=== PATIENT | female | born 1940 | race Caucasian/White ===

== ENCOUNTER 2019-07-03 13:13 | Inpatient (IN) | payer MEDICARE, OTHER ==
[~2019-07-03] VITALS: Ht 154.9 cm; Wt 45.8 kg
[2019-07-03] MEDS ORDERED: RISP1TAB7 PO (13:43)
[2019-07-03] MEDS ORDERED: CROM10DR2 OP (13:43)
[2019-07-03] MEDS ORDERED: ALEN70TA3 PO (13:43)
[2019-07-03] MEDS ORDERED: ALBU18HF2 IH (13:43)
[2019-07-03] MEDS ORDERED: ASPI-605 PO (13:43)
[2019-07-03] MEDS ORDERED: ESOM40CA52 PO (13:43)
[2019-07-03] MEDS ORDERED: ACET-2154 PO (13:43)
[2019-07-03 14:11] LABS: BASOPHILS # (AUTO) 0.1 K/uL (0.0-8.0); BASOPHILS % (AUTO) 1.2 % (0.0-2.0); EOSINOPHILS # (AUTO) 0.1 K/uL (0.0-0.7); EOSINOPHILS % (AUTO) 2.7 % (0.0-7.0); HEMATOCRIT 35.8 % (31.2-41.9); HEMOGLOBIN 11.8 g/dL (10.9-14.3); LYMPHOCYTES # (AUTO) 1.5 K/uL (20.0-40.0); LYMPHOCYTES % (AUTO) 28.3 % (20.5-51.5); MEAN CORPUSCULAR HEMOGLOBIN 28.4 uug (24.7-32.8); MEAN CORPUSCULAR HGB CONC 33 g/dL (32.3-35.6); MEAN CORPUSCULAR VOLUME 86.1 fL (75.5-95.3); MONOCYTES # (AUTO) 0.4 K/uL (2.0-10.0); MONOCYTES % (AUTO) 7.6 % (0.0-11.0); NEUTROPHILS # (AUTO) 3.3 K/uL (1.8-8.9); NEUTROPHILS % (AUTO) 60.2 % (38.5-71.5); PLATELET COUNT (AUTO) 319 K/uL (179-408); RED BLOOD CELL COUNT(AUTO) 4.16 MIL/uL (3.63-4.92); WHITE BLOOD COUNT (AUTO) 5.4 K/uL (3.8-11.8)
[2019-07-03] MEDS ORDERED: ALBUTEROL SULFATE 2.5 MG/3 ML NEBU ONE (14:15)
[2019-07-03 14:19] LABS: CARBON DIOXIDE 28 mmol/L (21-32); CHLORIDE 95 mmol/L (98-107); CREATININE 0.6 mg/dL (0.6-1.3); GLUCOSE 114 mg/dL (74-106); POTASSIUM 4.3 mmol/L (3.5-5.1); UREA NITROGEN, BLOOD 17 mg/dL (7-18)
[2019-07-03 14:25] LABS: ACETAMINOPHEN < 2.0 ug/mL (10-30); ALANINE AMINOTRANSFERASE 11 U/L (14-59); ALKALINE PHOSPHATASE 86 U/L (50-136); ASPARTATE AMINOTRANSFERASE 15 U/L (15-37); BILIRUBIN,DIRECT 0.1 mg/dL (0.0-0.2); BILIRUBIN,TOTAL 0.4 mg/dL (0.2-1.0); TOTAL PROTEIN, SERUM 7.3 g/dL (6.4-8.2)
[2019-07-03 14:29] LABS: ETHANOL < 3 MG/DL (0-0)
[2019-07-03 14:32] LABS: THYROID STIMULATING HORMONE 1.453 mIU/mL (0.358-3.740)
--- NOTE | 2019-07-03 15:10 | NUR ---
Pt is medically cleared by Dr Manley.
[2019-07-03 15:39] LABS: *BILIRUBIN,URIN NEGATIVE (NEGATIVE); *BLOOD, URINE 1+ (NEGATIVE); *CLARITY,URINE CLEAR (CLEAR); *COLOR,URINE YELLOW (YELLOW); *KETONES,URINE NEGATIVE (NEGATIVE); *UROBILINOGEN,URINE 0.2 E.U./dl (NORMAL); LEUKOCYTE ESTERASE ,URINE NEGATIVE (NEGATIVE); NITRITE, URINE NEGATIVE (NEGATIVE); UGLUCOSE NEGATIVE (NEGATIVE)
[2019-07-03 15:51] LABS: *AMPHETAMINE, URINE NEGATIVE (NEGATIVE); *BARBITURATE, URINE NEGATIVE (NEGATIVE); *CANNABINOID, URINE NEGATIVE (NEGATIVE); *COCCAINE, URINE NEGATIVE (NEGATIVE); *OPIATE, URINE NEGATIVE (NEGATIVE); *PHENCYCLIDINE SCREEN,URINE NEGATIVE (NEGATIVE)
[2019-07-03 15:52] LABS: SQUAMOUS EPITHELIAL CELL,UR FEW /HPF (NONE SEEN); WBC,URINE 0-3 /HPF (0-3)
[2019-07-03] MEDS ORDERED: MAGNESIUM HYDROXIDE 30 ML LIQUID UDC PO PRN (17:45)
[2019-07-03] MEDS ORDERED: MAG HYDROX/AL HYDROX/SIMETH 30 ML LIQUID UDC PO PRN (17:45)
[2019-07-03] MEDS ORDERED: BLOOD SUGAR DIAGNOSTIC 1 EACH STRIP VI ONE (17:45)
[2019-07-03] MEDS: LORAZEPAM 1 MG TABLET PO PRN ×2 (18:01→20:21)
[2019-07-03] MEDS ORDERED: ALBUTEROL SULFATE 2.5 MG/3 ML NEBU NEB PRN (18:30)
--- NOTE | 2019-07-03 18:35 | NUR ---
ADMITTING NOTES : admitting this 78 year old female patient from ER AOx2-3, patient easily irritably , was on 5150 hold for gravely Disabled, patient reported to be refusing her medication in [facility] , call and spoke with the nurse in [facility], they gave information regarding patient vaccine an advance directive, patient offered prn medication however refused, patient also refused to sign documents, patient refused her accucheck even after explaining the benefits of the procedures, called and spoke with DR. Odell , orders made and carried out, oriented to the unit , vs sign T97.3, R16, BP 150/78 SPO2 at 98%, patient refused her dinner, patient advisement were given, will continue monitor
[2019-07-03 20:00] VITALS: BP 163/67
--- NOTE | 2019-07-03 21:00 | NUR ---
Patient anxious, restless, walking through the hallway.hesitant to take medication. Was able to give the prn medication with repeated explanation.Will continue to monitor.
[2019-07-03] MEDS: HALOPERIDOL 0.5 MG TABLET PO SCH (21:57)
[2019-07-03] MEDS: DIVALPROEX 250 MG TABLET.DR PO SCH (21:57)
[2019-07-04] MEDS: PANTOPRAZOLE SODIUM 40 MG TABLET.DR PO SCH (06:20)
--- NOTE | 2019-07-04 06:33 | NUR ---
PATIENT AWAKE . TOOK SHOWER. COMPLIANT WITH MEDICATIONS. NO BEHAVIORAL ISSUES NOTED. SLEPT FOR 7 HRS
[2019-07-04 07:30] VITALS: BP_SYST 121; BP_SYST 141; BP_DIAS 59; BP_DIAS 71
[2019-07-04 07:41] LABS: BILIRUBIN,TOTAL 0.5 mg/dL (0.2-1.0); CREATININE 0.8 mg/dL (0.6-1.3); POTASSIUM 3.8 mmol/L (3.5-5.1); TOTAL PROTEIN, SERUM 6.5 g/dL (6.4-8.2)
[2019-07-04] MEDS: ASPIRIN EC 81 MG TABLET.DR PO SCH (08:47)
[2019-07-04] MEDS: DIVALPROEX 250 MG TABLET.DR PO SCH ×2 (08:47→20:18)
[2019-07-04] MEDS: HALOPERIDOL 0.5 MG TABLET PO SCH ×3 (08:47→17:00)
--- NOTE | 2019-07-04 08:52 | NUR ---
Received pt. ambulatory, A/Ox3, verbally responsive. No behavioral issue noted. All due medications administered as ordered. Frequent rounding performed. Denies pain or discomfort. Will continue to monitor.
--- NOTE | 2019-07-04 13:39 | NUR ---
Social Work Note: contact worker lithography contacted [facility] ([phone]) and spoke to Evelyn who shared that Scott Cornell ([phone]) is patients fuel truck driver. Evelyn stated that patient does not share any information and that no family members visited patient.
--- NOTE | 2019-07-04 13:55 | NUR ---
Social Work Note/Initial Discharge Plan: Patient currently resides at [facility] [address] [place] [address];([phone]). farm worker contacted Killian admin coordinator from [facility], ([phone]) who expressed that she would need to address with her director of financial planning in regarding whetther or not patient can return. farm worker will work with the patient and the MD regarding appropriate discharge planning. farm worker will form a safe and proper discharge.
--- NOTE | 2019-07-04 13:56 | NUR ---
Social Work Note/Discharge Plan Update: milking worker contacted patient facility [facility] and spoke to Leslie ([phone]) who reported that they will hold patients bed for 7 days.
--- NOTE | 2019-07-04 13:57 | NUR ---
Social Work Note: shell worker contacted Thelma melinda who is covering for [employer] ([phone]) expressed that the only contact information they have is ([phone]) who expressed to contact [facility]. shell worker expressed that she did and that they do not have any information in regard to patients contact information other than Scott.
--- NOTE | 2019-07-04 13:57 | NUR ---
Social Work Note/Family Contact: grout worker contacted patients friend Scott ([phone]) who expressed that he is just patients superintendent drivers and is unable to answer questions.
[2019-07-04 15:48] VITALS: BP 126/76
[2019-07-04 20:15] VITALS: BP 118/61
[2019-07-05] MEDS: PANTOPRAZOLE SODIUM 40 MG TABLET.DR PO SCH (06:59)
[2019-07-05] MEDS: ACETAMINOPHEN 325 MG TABLET PO PRN (07:01)
[2019-07-05 07:30] VITALS: BP 137/49
[2019-07-05] MEDS: DIVALPROEX 250 MG TABLET.DR PO SCH ×2 (08:09→20:03)
[2019-07-05] MEDS: HALOPERIDOL 0.5 MG TABLET PO SCH ×4 (08:09→16:05)
[2019-07-05] MEDS: ASPIRIN EC 81 MG TABLET.DR PO SCH (08:09)
[2019-07-05 16:00] VITALS: BP 175/79
--- NOTE | 2019-07-05 16:35 | NUR ---
GPS: RECEIVED PATIENT AOX2-3, PATIENT COMPLIANT WITH MEDICATION ONLY IF SHE HAD FOOD , PATIENT ARGUMENTATIVE WITH STAFF AND ROOMMATE, SEEN WALKING IN THE HALLWAY , PATIENT SAT ON THE MAX-CHAIR SINCE PATIENT ALWAYS ARGUE WITH ROOMMATE, WILL CONTINUE MONITOR
[2019-07-05] MEDS: LORAZEPAM 1 MG TABLET PO PRN (19:28)
[2019-07-05 20:21] VITALS: BP 126/60
[2019-07-06] MEDS: PANTOPRAZOLE SODIUM 40 MG TABLET.DR PO SCH (06:10)
[2019-07-06] MEDS: DIVALPROEX 250 MG TABLET.DR PO SCH ×2 (08:05→20:35)
[2019-07-06] MEDS: HALOPERIDOL 0.5 MG TABLET PO SCH ×3 (08:05→16:30)
[2019-07-06] MEDS: ASPIRIN EC 81 MG TABLET.DR PO SCH (08:05)
[2019-07-06 08:12] VITALS: BP 118/59
[2019-07-06 16:15] VITALS: BP 112/62
[2019-07-06 20:00] VITALS: BP 135/62
[2019-07-06] MEDS: LORAZEPAM 1 MG TABLET PO PRN (20:35)
[2019-07-06] MEDS: TEMAZEPAM 7.5 MG CAPSULE PO PRN (23:12)
[2019-07-07] MEDS: ALENDRONATE SODIUM 70 MG TABLET PO SCH (06:30)
[2019-07-07] MEDS: PANTOPRAZOLE SODIUM 40 MG TABLET.DR PO SCH (06:59)
[2019-07-07 07:30] VITALS: BP 156/55
[2019-07-07] MEDS: DIVALPROEX 250 MG TABLET.DR PO SCH ×2 (08:21→20:10)
[2019-07-07] MEDS: ASPIRIN EC 81 MG TABLET.DR PO SCH (08:21)
[2019-07-07] MEDS: HALOPERIDOL 0.5 MG TABLET PO SCH ×4 (08:21→21:08)
[2019-07-07] MEDS: LORAZEPAM 1 MG TABLET PO PRN ×2 (08:35→20:04)
[2019-07-07 15:20] VITALS: BP 141/50
--- NOTE | 2019-07-07 16:23 | NUR ---
GPS: PATIENT BEEN ARGUING WITH HER ROOMMATE, REDIRECT PATIENT AND HAD HER SEAT IN MAX CHAIR, PATIENT BEEN SLEEPING ON THE CHAIR, DENIES SI AND HI, WILL CONTINUE MONITOR
--- NOTE | 2019-07-07 18:21 | NUR ---
GPS: PATIENT GOT IRRITATED WITH ROOMMATE, REDIRECT PATIENT WITH QUIET TIME, PATIENT STAYED CALM IN THE MAX CHAIR, WILL CONTINUE MONITOR
[2019-07-07] MEDS ORDERED: CLONAZEPAM 0.5 MG TABLET PO SCH ×2 (21:00)
[2019-07-08 07:30] VITALS: BP 109/49
[2019-07-08] MEDS: HALOPERIDOL 0.5 MG TABLET PO SCH ×6 (09:06→20:27)
[2019-07-08] MEDS: ASPIRIN EC 81 MG TABLET.DR PO SCH (09:06)
[2019-07-08] MEDS: DIVALPROEX 250 MG TABLET.DR PO SCH ×2 (09:06→20:27)
--- NOTE | 2019-07-08 09:34 | NUR ---
Social Work Note/Discharge Plan: compound worker contacted patient facility [facility] and spoke to Leslie ([phone]) who reported that patient is welcomed back.
--- NOTE | 2019-07-08 10:02 | NUR ---
Social Work Note/Discharge Plan Update: child welfare social worker faxed Estefania admin coordinator from [facility] (F:[phone]). Social worked faxed progress notes and psychiatric H & P for coordination of care.
[2019-07-08 15:20] VITALS: BP 90/48
--- NOTE | 2019-07-08 16:03 | NUR ---
Social Work Note/PC Hearing Notification: lubrication worker was unable to contact a family member. Patient does not have any family members.
--- NOTE | 2019-07-08 16:33 | NUR ---
GPS: patient evading her medication , everytime offering medication, patient will say she needs to eat first, patient refusing her medication
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
[2019-07-08] MEDS: LORAZEPAM 1 MG TABLET PO PRN (18:52)
[2019-07-08 19:51] VITALS: BP 139/63
[2019-07-08] MEDS: CLONAZEPAM 0.5 MG TABLET PO SCH (20:27)
--- NOTE | 2019-07-09 05:53 | NUR ---
Patient slept 3 hours. Spent a good portion of the night arguing with roommate about leaving the light on, keeping the door open and other little things. Offered patient am dose of Protonix, but patient refused. Md aware of patients on and off refusal of taking her medications. No acute distress at this time. Patient in bed resting.
[2019-07-09] MEDS: PANTOPRAZOLE SODIUM 40 MG TABLET.DR PO SCH ×2 (05:58→06:00)
[2019-07-09 07:30] VITALS: BP 146/62
[2019-07-09] MEDS: HALOPERIDOL 0.5 MG TABLET PO SCH ×5 (08:19→20:22)
[2019-07-09] MEDS: CLONAZEPAM 0.5 MG TABLET PO SCH ×3 (08:19→20:27)
[2019-07-09] MEDS: DIVALPROEX 250 MG TABLET.DR PO SCH ×4 (08:19→20:22)
[2019-07-09] MEDS: ASPIRIN EC 81 MG TABLET.DR PO SCH ×2 (08:19→09:00)
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
--- NOTE | 2019-07-09 09:37 | NUR ---
patient went to nursing station and being argumentative, patient being racist calling nurses "[place] Islander "
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
--- NOTE | 2019-07-09 12:58 | NUR ---
Social Work Note/Family Contact: Patients family members son Wilder ([phone]) and Svetlana ([phone]) visited social services specialist. Per Wilder, he expressed that when patient was at [facility] his Doctor () was discharging patient and that our PET team went and put him on a hold, which the family is not agreeing with. Per Wilder, he expressed that it was bad timing and that patient was already discharged and that Abebe from our PET team went ahead and put patient on hold. drying can worker educated family about the safety of the patient and the reason for the hold. Family expressed that patient is not suicidal and that it was all a miscommunication with the staff. Per Wilder, he expressed that the psychiatrist Dr. Sawant discontinued patients medication Ativan as it made patient more agitated. Per Wilder, he expressed that Seroquel was helpful and that benadryl helps with sleep. drying can worker educated patients family on what a 5150 hold is. Addendum: 07/09/19 at 1342 by ZELDA GALICIA Amend incorrect patient note.
--- NOTE | 2019-07-09 13:39 | NUR ---
Social Work Note/Coordination of Care: housekeeping laundry worker contacted trev Jurado; [facility] ([phone]), [facility] [place] ([phone]), [facility] ([phone]), [facility] ([phone]) and faxed progress notes and H & P psychiatric notes. Per Adrien, he will contact hospice social worker if patient is accepted.
--- NOTE | 2019-07-09 13:44 | NUR ---
Social Work Note/Discharge Plan Update: industrial workers contacted Estefania admin coordinator from [facility] (F:[phone]) and stated that patient is unable to return yet due to Dr. Oedll stating that patient is not ready. industrial workers asked Estefania if they will honor patients bed after the 7 day bed hold. Per Estefania, she stated that if they have beds available they will take her back.
[2019-07-09 16:00] VITALS: BP 125/49
--- NOTE | 2019-07-09 16:29 | NUR ---
GPS: patient remains in her room , continues to refuse her medication, verbally abusive to staff
--- NOTE | 2019-07-09 17:53 | NUR ---
offered her medication , patient refused
[2019-07-09 20:04] VITALS: BP 153/54
--- NOTE | 2019-07-09 20:50 | NUR ---
Received patient in bed, patient was calm, talkin to her room mate. Med compliant. no behavioral issue at this time.
[2019-07-10] MEDS: ACETAMINOPHEN 325 MG TABLET PO PRN ×3 (05:58→22:43)
[2019-07-10] MEDS: PANTOPRAZOLE SODIUM 40 MG TABLET.DR PO SCH (06:00)
--- NOTE | 2019-07-10 06:00 | NUR ---
Patient complained of pain on her side. Gave tylenol 650mg. Will continue to monitor.
[2019-07-10 07:30] VITALS: BP 116/40
[2019-07-10] MEDS: ASPIRIN EC 81 MG TABLET.DR PO SCH (08:24)
[2019-07-10] MEDS: DIVALPROEX 250 MG TABLET.DR PO SCH ×3 (08:24→20:34)
[2019-07-10] MEDS: HALOPERIDOL 1 MG TABLET PO SCH ×3 (08:25→16:13)
[2019-07-10] MEDS: CLONAZEPAM 0.5 MG TABLET PO SCH ×2 (08:25→20:34)
--- NOTE | 2019-07-10 12:25 | NUR ---
Social Work Note/Coordination of Care: christmas tree farm worker faxed patients progress notes and psychiatric H & P notes to Luisa from [facility] ([phone]). Per Luisa, transferred me to [facility] admin coordinator who expressed that patient is not accepted due to behavioral issues.
--- NOTE | 2019-07-10 12:26 | NUR ---
Social Work Note/Coordination of Care: coating line worker contacted Ashley from [facility] ([phone]) and faxed progress notes and psychiatric H & P notes. Per Ashley, she would want to evaluate patient.
--- NOTE | 2019-07-10 12:44 | NUR ---
Pt received resting in bed, denies SI/HI/AH/VH, able to make needs known and CFS. Pt compliant with medications. Ambulates steadily with walker. Pt is cooperative with care offered. All safety and comfort measures implemented. Will continue to monitor.
--- NOTE | 2019-07-10 13:28 | NUR ---
Social Work Note/Coordination of Care: channel worker contacted Ashley from [facility] ([phone]) and expressed that patient is denied due to behavioral issues.
[2019-07-10 16:08] VITALS: BP 102/42
[2019-07-10 21:23] VITALS: BP 124/57
[2019-07-11] MEDS: TEMAZEPAM 7.5 MG CAPSULE PO PRN (01:42)
[2019-07-11] MEDS: PANTOPRAZOLE SODIUM 40 MG TABLET.DR PO SCH (07:09)
[2019-07-11] MEDS: CLONAZEPAM 0.5 MG TABLET PO SCH ×2 (08:35→19:59)
[2019-07-11] MEDS: HALOPERIDOL 1 MG TABLET PO SCH ×3 (08:35→16:31)
[2019-07-11] MEDS: DIVALPROEX 250 MG TABLET.DR PO SCH ×3 (08:35→19:59)
[2019-07-11] MEDS: ASPIRIN EC 81 MG TABLET.DR PO SCH (08:35)
[2019-07-11 10:21] VITALS: BP 135/66
[2019-07-11 16:00] VITALS: BP 137/53
[2019-07-11 21:16] VITALS: BP 136/67
[2019-07-12] MEDS: TEMAZEPAM 7.5 MG CAPSULE PO PRN (00:39)
--- NOTE | 2019-07-12 05:31 | NUR ---
Patient slept only 2.45 hour. Most of the night was spent arguing with the roommate. Patient very difficult to redirect or keep in reality. Patient has been paranoid and accusatory of roommate and staff. Went back to bed at this time, no acute distress noted. Continuing to monitor for safety.
[2019-07-12] MEDS: PANTOPRAZOLE SODIUM 40 MG TABLET.DR PO SCH (06:26)
[2019-07-12 07:30] VITALS: BP 132/32
[2019-07-12] MEDS: HALOPERIDOL 1 MG TABLET PO SCH ×3 (08:10→16:00)
[2019-07-12] MEDS: CLONAZEPAM 0.5 MG TABLET PO SCH ×2 (08:10→20:31)
[2019-07-12] MEDS: ASPIRIN EC 81 MG TABLET.DR PO SCH (08:10)
[2019-07-12] MEDS: DIVALPROEX 250 MG TABLET.DR PO SCH ×3 (08:10→20:31)
[2019-07-12 16:00] VITALS: BP 138/59
[2019-07-12 20:33] VITALS: BP 119/58
[2019-07-13] MEDS: ACETAMINOPHEN 325 MG TABLET PO PRN ×2 (01:22→20:06)
[2019-07-13] MEDS: PANTOPRAZOLE SODIUM 40 MG TABLET.DR PO SCH (07:00)
[2019-07-13 07:30] VITALS: BP 128/49
[2019-07-13] MEDS: ASPIRIN EC 81 MG TABLET.DR PO SCH (08:26)
[2019-07-13] MEDS: CLONAZEPAM 0.5 MG TABLET PO SCH ×2 (08:27→20:06)
[2019-07-13] MEDS: DIVALPROEX 250 MG TABLET.DR PO SCH ×3 (08:27→20:06)
[2019-07-13] MEDS: HALOPERIDOL 1 MG TABLET PO SCH ×3 (08:27→17:16)
[2019-07-13 16:00] VITALS: BP 117/48
[2019-07-13 20:40] VITALS: BP 138/64
[2019-07-14] MEDS: ACETAMINOPHEN 325 MG TABLET PO PRN (03:53)
[2019-07-14] MEDS: ALENDRONATE SODIUM 70 MG TABLET PO SCH (06:30)
[2019-07-14] MEDS: PANTOPRAZOLE SODIUM 40 MG TABLET.DR PO SCH (07:00)
--- NOTE | 2019-07-14 07:35 | NUR ---
UNABLE TO ADMINISTER ALENDRONATE THIS MORNING. PATIENT DOES NOT FOLLOW INSTRUCTION ON STAY UPRIGHT AND DRINKING 8OZ OF WATER. SHE ALSO REFUSED PROTONIX. SHE STATED "I DON'T HAVE GERD". WILL CONTINUE TO MONITOR.
[2019-07-14] MEDS: ASPIRIN EC 81 MG TABLET.DR PO SCH (08:15)
[2019-07-14] MEDS: CLONAZEPAM 0.5 MG TABLET PO SCH ×2 (08:16→20:02)
[2019-07-14] MEDS: DIVALPROEX 250 MG TABLET.DR PO SCH ×3 (08:16→20:02)
[2019-07-14] MEDS: HALOPERIDOL 1 MG TABLET PO SCH ×3 (08:16→16:23)
[2019-07-14 08:33] VITALS: BP 132/40
[2019-07-14 15:51] VITALS: BP 119/43
--- NOTE | 2019-07-14 15:56 | NUR ---
transfer care to new Rn report given
[2019-07-14 20:11] VITALS: BP 148/56
[2019-07-14] MEDS: chlorproMAZINE 25 MG TABLET PO SCH (22:03)
--- NOTE | 2019-07-14 22:51 | NUR ---
Patient constantly at nursing station, hyperverbal unable to follow direction. Patient refuses to remain in room and sleep. patient's medication was adjusted, patient agreed to take the new medication however an hour later she was at the nursing station stating that she has never taken so much medication and that staff is attempting to poison her. Delusional, disorganized, demanding.
[2019-07-15] MEDS: PANTOPRAZOLE SODIUM 40 MG TABLET.DR PO SCH (06:12)
[2019-07-15] MEDS: ACETAMINOPHEN 325 MG TABLET PO PRN (06:12)
[2019-07-15 07:30] VITALS: BP 135/61
[2019-07-15] MEDS: ASPIRIN EC 81 MG TABLET.DR PO SCH (09:12)
[2019-07-15] MEDS: chlorproMAZINE 25 MG TABLET PO SCH ×3 (09:12→16:25)
[2019-07-15] MEDS: CLONAZEPAM 0.5 MG TABLET PO SCH ×3 (09:12→20:48)
[2019-07-15] MEDS: DIVALPROEX 250 MG TABLET.DR PO SCH ×4 (09:13→20:48)
--- NOTE | 2019-07-15 15:14 | NUR ---
Coordination of Care: traffic worker spoke with Addy GROVER at [facility] ([phone]) to speak with an admission coordinator and he stated everyone has left for the day. traffic worker requested if this parts data writer can fax over a referral packet for the patient for review (fax# [phone]). Addy stated that someone will review when admissions comes back on . traffic worker spoke with Jossy international exchange coordinator at [facility] ([phone]) and faxed a referral packet for review (fax# [phone]).
[2019-07-15 16:00] VITALS: BP 114/45
--- NOTE | 2019-07-15 18:16 | NUR ---
GPS: received patient asleep on bed, patient compliant with medication, assisted with ADLs will continue monitor
[2019-07-16] MEDS: PANTOPRAZOLE SODIUM 40 MG TABLET.DR PO SCH (07:00)
[2019-07-16 07:30] VITALS: BP 142/62
[2019-07-16] MEDS: CLONAZEPAM 0.5 MG TABLET PO SCH ×2 (10:21→20:20)
[2019-07-16] MEDS: ASPIRIN EC 81 MG TABLET.DR PO SCH (10:21)
[2019-07-16] MEDS: DIVALPROEX 250 MG TABLET.DR PO SCH ×3 (10:22→20:20)
[2019-07-16] MEDS: chlorproMAZINE 25 MG TABLET PO SCH ×4 (10:23→17:12)
[2019-07-16 16:00] VITALS: BP 107/47
[2019-07-16 20:00] VITALS: BP 117/51
[2019-07-16] MEDS ORDERED: LORAZEPAM 1 MG TABLET PO PRN (23:15)
[2019-07-16] MEDS ORDERED: TEMAZEPAM 7.5 MG CAPSULE PO PRN (23:15)
--- NOTE | 2019-07-17 05:25 | NUR ---
Patient slept 3 hours only. Up most of the night arguing with staff and roommate. Patient is delusional and makes many false accusations. Patient is difficult to reason with or redirect. Continuing to monitor patient for safety. No distress at this time.
[2019-07-17] MEDS: PANTOPRAZOLE SODIUM 40 MG TABLET.DR PO SCH (06:00)
[2019-07-17 07:51] VITALS: BP 110/53
[2019-07-17] MEDS: chlorproMAZINE 25 MG TABLET PO SCH ×3 (08:50→16:25)
[2019-07-17] MEDS: CLONAZEPAM 0.5 MG TABLET PO SCH ×3 (08:50→21:00)
[2019-07-17] MEDS: ASPIRIN EC 81 MG TABLET.DR PO SCH (08:50)
[2019-07-17] MEDS: DIVALPROEX 250 MG TABLET.DR PO SCH ×4 (08:51→21:00)
--- NOTE | 2019-07-17 12:29 | NUR ---
Social Work Note/Coordination of Care: cut in worker spoke with Addy GROVER at [facility] ([phone]) shared that they are full and are unable to take any patients.
--- NOTE | 2019-07-17 14:36 | NUR ---
Social Work Note/Coordination of Care: plate worker helper faxed progress notes and psychiatric H & P to CJ from [place] ([phone]) for coordination of care.
[2019-07-17 16:51] VITALS: BP 112/50
--- NOTE | 2019-07-17 20:00 | NUR ---
RECEIVED PATIENT IN HER ROOM IN BED ASLEEP BUT EASILY AROUSABLE. PATIENT NOTED EASILY IRRITABLE, IMPAIRED INSIGHT AND JUDGMENT. PT REQUIRED MULTIPLE REDIRECTIONS. V/S STABLE. PATIENT IS REASSURED FOR HER SAFETY, WILL CONTINUE TO MONITOR.
[2019-07-17 20:22] VITALS: BP 118/49
--- NOTE | 2019-07-17 22:30 | NUR ---
AFTER MULTIPLE ATTEMPTS AND MULTIPLE REDIRECTIONS, PATIENT REFUSED ALL HER QHS MEDICATION. SHE CONTINUE NEEDY, SUSPICIOUS, IRRITABLE. REQUIRED MULTIPLE REDIRECTIONS. WILL CONTINUE TO MONITOR.
[2019-07-18] MEDS: ACETAMINOPHEN 325 MG TABLET PO PRN (04:03)
--- NOTE | 2019-07-18 06:50 | NUR ---
patient slept for approx. 4.45 hrs through the night. she continue needy and hyperverbal. she required multiple redirections. she keep requesting to keep the light on through the night.
[2019-07-18 07:30] VITALS: BP 165/68
--- NOTE | 2019-07-18 08:05 | NUR ---
Social Work Note/Discharge Note: Patient will be discharged to residential facility to [facility] [address] [place] [address]; ) via Ambulance transportation at 12:00am. Seam Hammerer spoke with CRISTY, Blast Furnace Tender at [facility]; ([phone]), who stated patient will be accepted at facility today. Patient is alert and oriented x2-3, and is not able to plan for self-care at this time, but is willing to accept care provided for her at the facility. Patient denies any suicidal or homicidal ideations. Patient does not have any family members. Patient is aware and agreeable with discharge plans. Patient will continue to follow-up with her Psychiatrist Dr. Mckeon and School Attendance Secretary Dr. Iniguez at [facility] [address] [place] [address]; ). Patient will follow-up at the center. Patient presents with euthymic mood and congruent affect.
--- NOTE | 2019-07-18 08:06 | NUR ---
Social Work Note/Firearms Report: Self Propelled Mining Machine Operator completed and submitted a [employer] firearms report for 5250 grave disability certification. A copy of report has been placed in patient chart.
[2019-07-18] MEDS: PANTOPRAZOLE SODIUM 40 MG TABLET.DR PO SCH (08:41)
[2019-07-18] MEDS: ASPIRIN EC 81 MG TABLET.DR PO SCH (08:42)
[2019-07-18] MEDS: CLONAZEPAM 0.5 MG TABLET PO SCH (08:42)
[2019-07-18] MEDS: DIVALPROEX 250 MG TABLET.DR PO SCH (08:42)
[2019-07-18] MEDS: chlorproMAZINE 25 MG TABLET PO SCH (08:42)
--- NOTE | 2019-07-18 13:01 | NUR ---
Gps/Core Blower Operator- Called [facility], report was given to Nurse Marina. Ambulance transport signed belongings/valuables r/t patient has money total to $7,608.oo and 5 rings, pictures was taken copy sent to the facility. Patient looking for red underwear , unable to provide, r/t patient didnt come in with it. Anxious,, aware of her discharge plan. All belongings/valuables was given back to patient. Patient refused to signed belonging list. Refusing to leave in the beginning ,discussed importance of her discharged plan Dr Mckeon will follow her at the facility, patient verbalized understanding.Discharged in no distress, no complaints noted.
== END 2019-07-18 13:00 | DRG 885 ==
LOC: ER 13:13 → GPS 16:56
PROVIDERS: ADMIT Psychiatry & Neurology Psychiatry; ATTEND Hospitalist
DX: F29 Unspecified psychosis not due to a substance or known physiological condition (principal); E44.0 Moderate protein-calorie malnutrition; Z68.1 Body mass index [BMI] 19.9 or less, adult; E87.1 Hypo-osmolality and hyponatremia; F39 Unspecified mood [affective] disorder; J45.909 Unspecified asthma, uncomplicated; Z79.83 Long term (current) use of bisphosphonates; K21.9 Gastro-esophageal reflux disease without esophagitis; M81.0 Age-related osteoporosis without current pathological fracture; G89.29 Other chronic pain; Z91.14 Patient's other noncompliance with medication regimen; I70.0 Atherosclerosis of aorta; Z87.311 Personal history of (healed) other pathological fracture; M54.5 Low back pain
CPT/HCPCS: 36415; 70030-TC; 71045; 80307; 84443; 85025; 85730; 87086; 93005; A4663; G0480; G0480-TC; J3490; J8499; Q0161